=== PATIENT | male | born 1965 | race Caucasian/White ===

== ENCOUNTER 2019-10-11 03:49 | Inpatient (IN) | payer BC ==
[~2019-10-11] VITALS: Ht 170.2 cm; Wt 60.2 kg
[~2019-10-11 03:49] MED LIST: ACET325 PO; DIPH50 PO
[2019-10-11 04:08] LABS: PCO2 Arterial 47.8 mmHg (35-45); PO2 Arterial 69.5 mmHg (80-100); pH Blood Arterial 7.37 (7.35-7.45)
[2019-10-11 04:08] LABS: BASOPHILS ABSOLUTE AUTO 0.09 K/mm3 (0.00-0.23); BASOPHILS PERCENT AUTO 1 % (0-2); EOSINOPHILS ABSOLUTE AUTO 0.46 K/mm3 (0.00-0.68); EOSINOPHILS PERCENT AUTO 7 % (0-6); Hematocrit 43.2 % (37.0-53.0); Hemoglobin 15.1 g/dL (13.5-17.5); IMMATURE GRAN ABSOLUTE AUTO 0.01 K/mm3 (0.00-0.10); IMMATURE GRAN PERCENT AUTO 0 % (0-1); LYMPHOCYTES ABSOLUTE AUTO 2.78 K/mm3 (0.84-5.20); LYMPHOCYTES PERCENT AUTO 43 % (21-46); MONOCYTES ABSOLUTE AUTO 0.86 K/mm3 (0.16-1.47); MONOCYTES PERCENT AUTO 13 % (4-13); Mean Corpuscular HGB 31.8 pg (26.0-34.0); Mean Corpuscular Volume 91 fL (80-100); Mean Platelet Volume 8.7 fL (9.1-12.4); NEUTROPHILS ABSOLUTE AUTO 2.26 K/mm3 (1.96-9.15); NEUTROPHILS PERCENT AUTO 35 % (41-73); Platelet Count 261 K/mm3 (150-400); RDW Coefficient Variation 11.5 % (11.7-14.2); RDW Standard Deviation 38.7 fL (35.1-46.3); Red Blood Cell Count 4.75 M/mm3 (4.30-5.90); White Blood Cell Count 6.46 K/mm3 (4.00-11.30)
[2019-10-11 04:32] LABS: Alanine Aminotransfer (ALT/SGP 31 U/L (12-78); Albumin, Blood 3.6 g/dL (3.4-5.0); Albumin/Globulin Ratio 1.1 (0.8-1.8); Alk Phos 73 U/L (50-136); Anion Gap 4 mmol/L (6-16); Aspartate Aminotrans (AST/SGOT 32 U/L (12-37); Bilirubin, Total 0.8 mg/dL (0.1-1.0); Blood Urea Nitrogen 4 mg/dL (8-24); Bun/Creatinine Ratio 6.1 (12.0-20.0); CO2, Blood 31 mmol/L (21-32); Calcium, Blood 8.3 mg/dL (8.5-10.1); Chloride, Blood 95 mmol/L (98-108); Creatinine, Blood 0.66 mg/dL (0.60-1.20); Globulin, Blood 3.4 g/dL (2.2-4.0); Glomerular Filtration Rate >60 (60-); Glucose, Blood 99 mg/dL (70-99); Potassium, Blood 4.2 mmol/L (3.5-5.5); Sodium, Blood 130 mmol/L (136-145); Troponin I <0.015 ng/mL (0.000-0.040)
[2019-10-11] MEDS ORDERED: PRINIVIL10 MG PO (05:55)
[2019-10-11] MEDS ORDERED: BUDE6HFA INH (05:55)
[2019-10-11] MEDS ORDERED: COMBIVENT RESPIM4 GM INH (05:55)
[2019-10-11] MEDS ORDERED: [UNRECOGNIZED DRUG - REMARK] NEB (07:09)
--- NOTE | 2019-10-11 07:15 | NUR ---
new arrival from ER, started admission but handed it off to day staff at shift change, pt in bed, low position, scuds attached, refused biap, stating 90's on 2L via nc, ns infusing with no s/sx of infection or infiltration, a+o, answering questions in full sentences, bsr shared with pt and day staff
--- NOTE | 2019-10-11 10:52 | NUR ---
PERMISSION FOR CARE PATIENT GAVE STUDENT PERMISSION TO PROVIDE CARE ON 10/11/19.
--- NOTE | 2019-10-11 13:14 | NUR ---
The pt has been alert, oriented, and states that his breathing is ok, about the same as when he arrived from the around 0730 this morning. He has been wearing 2 l/min of oxygen, maintaining spo2 greater than 93%. Dyspneic with activity of standing to use the urinal, because this triggers productive coughing. Sputum specimen was sent. He denies becoming short of breath while eating his meals today. states that his family has been urging him for years to quit smoking. also states that he drinks "at least a six pack of beer" every evening, but does not have withdrawl symptoms when he doesn't drink if he has to work. states that he is scheduled for a CT scan next week as Dr. Compa Coats was very concerned that the pt might have cancer. He has had a decreased appetite and 30 pound weight loss in the past 4 months. is very anxious to talk with the hospitalist today to learn the results of the chest xray.
--- NOTE | 2019-10-11 14:40 | NUR ---
Advance Directive Education Conducted. Upon receiving an admit referral for Advance Directive education, I visited patient and his Veda, who was bedside. The interest was minimal but they stated that I could leave the Advance Directive forms with them. I went over the sections, talked about the health care dermatology sales representative, and the options to choose from. I will continue to remaina vailble to patient and family.
--- NOTE | 2019-10-11 16:41 | NUR ---
Dr. Daley was here to see the pt about an hour ago. STates no pneumonia in pt's lungs. Pt has stable vital signs, and states that his breathing is much easier , less tight, than it was this morning. He is sitting up in bed, talking with the physician and with his .
--- NOTE | 2019-10-11 19:04 | NUR ---
summary Overall, pt states much improvement in breathing since this morning. Still wearing oxygen 2 l/min, and spo2 drops to at least 90% with activity such as toileting. He was able to ambulate once into the bathroom this afternoon. Eating, but has a decreased appetite. Voiding without apparent difficulty. He has not expressed any needs, discomfort, or pain this evening. Has been sleeping since after dinner time. Call light in reach; report handoff given to Fidencio Marks RN.
--- NOTE | 2019-10-12 07:30 | NUR ---
ASSUMED CARE: RESTING QUIETLY ON 2L NC. NO ACUTE NEEDS OR CONCERNS AT THIS TIME
--- NOTE | 2019-10-12 07:46 | NUR ---
SHIFT SUMMARY PATIENT PLEASENT AND COOPERATIVE. PATIENT MEDICATED WITH RELIEF FOR AN UPSET STOMACHE PER EMAR. PATIENT APPEARED TO SLEEP WELL THROUGHOUT MOST OF THE NIGHT USING 2L O2 VIA N/C. PATIENT USED THE URINAL AT THE BEDSIDE THROUGHOUT THE NIGHT. PATIENT GOT UP TO THE BATHROOM ONCE AT APPROX 0445 BUT BECAME VERY SOB AND ANXIOUS. PATIENT REQUIRED THE VISION BIPAP FOR RESCUE BUT RECOVERED WITHIN APPROX 10 MINUTES AND THEN WENT BACK TO THE N/C. NO FURTHER EPISODES OCCURRED LAST NIGHT. REPORT GIVEN TO ONCOMING RN.
--- NOTE | 2019-10-12 15:10 | NUR ---
RT DI HOME O2 EVAL AND PT DID NOT QUALIFY. RT REQUESTED SLEEP OXYMETRY STUDY. CALL TO DR GOODWIN. SEE NEW ORDERS
--- NOTE | 2019-10-12 18:35 | NUR ---
SHIFT SUMMARY: PT ON ROOM AIR AT THIS TIME. RT ASSISTING WITH CARE, HOME O2 EVAL COMPLETED AND PT DOES NOT QUALIFY FOR HOME O2. SLEEP O2 EVAL TO BE DONE THIS PM. PLAN IS FOR DC TOMORROW IF NO ISSUES WITH DESATTING OVERNIGHT
--- NOTE | 2019-10-13 06:05 | NUR ---
SHIFT SUMMARY: PATIENT COMPLETED SLEEP STUDY THIS PM, NO ISSUES NOTED. VSS, CALL LIGHT WITHIN REACH, BED LOW AND LOCKED AND PATINET COMPLIANT WITH CARE.
--- NOTE | 2019-10-13 07:30 | NUR ---
ASSUMED CARE: PT SITTING UPRIGHT IN BED ON ROOM AIR. RT AT BEDSIDE. NO NEEDS AT THIS TIME.
[2019-10-13] MEDS ORDERED: PRED20 PO (10:26)
[2019-10-13] MEDS ORDERED: GUAI600T33 PO (10:40)
--- NOTE | 2019-10-13 11:46 | NUR ---
DISCHARGE; PT'S IV REMOVED WNL. DISCUSSD DC INSTRUCTIONS WITH PT, INCLUDING PREDNISONE TAPER AND RESTARTING PREDNISONE IF WHEEZING RESUMES. INSTRUCTED PT TO CONTACT DISULFURIZER TENDER ON FURTHER INSTRUCTIONS IF PREDNISONE HAS TO BE RESTARTED. DENIED FURTHER QUESTIONS OR CONCERNS. ESCORTED OUT WHEEL CHAIR BY HOSPITAL STAFF
--- NOTE | 2019-10-13 11:47 | NUR ---
ASSUMED CARE APPROXIMATELY 0700; PT A&O X 4; PT SITTING AT EDGE OF BED SMILING AND MAKING JOKES; DENIED PAIN, CHEST PAIN; PT ANXIOUS TO BE DISCHARGED; STATES HE IS FEELING WELL; DENIED NEEDS AT THIS TIME; CALL LIGHT IN REACH; BED IN LOWEST POSITION; WILL CONTINUE TO ASSESS AND MONITOR
== END 2019-10-13 11:38 | disposition home or self-care (01) | DRG 189 ==
LOC: ER 03:49 → PCU 05:54
PROVIDERS: Emergency Medicine; ADMIT Hospitalist
PROC: 5A09357 Assistance with Respiratory Ventilation, Less than 24 Consecutive Hours, Continuous Positive Airway Pressure (ICD-10-PCS; principal; 2019-10-11)
DX: J96.01 Acute respiratory failure with hypoxia (principal); E22.2 Syndrome of inappropriate secretion of antidiuretic hormone; E87.3 Alkalosis; E87.2 Acidosis; J45.901 Unspecified asthma with (acute) exacerbation; J43.9 Emphysema, unspecified; I10 Essential (primary) hypertension; F17.200 Nicotine dependence, unspecified, uncomplicated
CPT/HCPCS: 36415; 36600; 71045; 80053; 82803; 84484; 85025; 87070; 87205; 93005; 93010; 94640; 94660; 94761; 94762; 99285-25; J1650; J2930; J7030; J7040; J7512

== ENCOUNTER 2020-08-11 21:28 | Emergency (ER) | payer OTHER, BC ==
[~2020-08-11] VITALS: Ht 167.6 cm; Wt 63.5 kg
[~2020-08-11 21:28] MED LIST changes: +BUDE6HFA INH; +COMBIVENT RESPIM4 GM INH; +GUAI600T33 PO; +PRED20 PO; +PRINIVIL10 MG PO; +[UNRECOGNIZED DRUG - REMARK] NEB
[2020-08-11] MEDS ORDERED: TRELEGY ELLIPT1 EACH IH (21:37)
[2020-08-11] MEDS ORDERED: IPRAT-ALBUT 0.5-3 ML IH (21:37)
[2020-08-11] MEDS ORDERED: QVAR REDIHALE10.6 G2 IH (21:37)
[2020-08-11] MEDS ORDERED: Keflex500 MG PO (22:12)
== END 2020-08-11 22:16 | disposition home or self-care (01) ==
LOC: ER 21:28
DX: L03.113 Cellulitis of right upper limb (principal); S51.811A Laceration without foreign body of right forearm, initial encounter; I10 Essential (primary) hypertension; J43.9 Emphysema, unspecified; F17.210 Nicotine dependence, cigarettes, uncomplicated; Z79.899 Other long term (current) drug therapy; W45.8XXA Other foreign body or object entering through skin, initial encounter; Y92.89 Other specified places as the place of occurrence of the external cause; Y99.0 Civilian activity done for income or pay
CPT/HCPCS: 99283; A9270-GY

== ENCOUNTER 2022-04-07 08:37 | Emergency (ER) | payer BC ==
[~2022-04-07] VITALS: Ht 167.6 cm; Wt 61.2 kg
[~2022-04-07 08:37] MED LIST changes: +IPRAT-ALBUT 0.5-3 ML IH; +Keflex500 MG PO; +QVAR REDIHALE10.6 G2 IH; +TRELEGY ELLIPT1 EACH IH
[2022-04-07 09:02] LABS: BASOPHILS ABSOLUTE AUTO 0.04 K/mm3 (0.00-0.23); BASOPHILS PERCENT AUTO 0 % (0-2); EOSINOPHILS ABSOLUTE AUTO 0.05 K/mm3 (0.00-0.68); EOSINOPHILS PERCENT AUTO 1 % (0-6); Hematocrit 38.4 % (37.0-53.0); Hemoglobin 13.7 g/dL (13.5-17.5); IMMATURE GRAN ABSOLUTE AUTO 0.04 K/mm3 (0.00-0.10); IMMATURE GRAN PERCENT AUTO 0 % (0-1); LYMPHOCYTES ABSOLUTE AUTO 2.94 K/mm3 (0.84-5.20); LYMPHOCYTES PERCENT AUTO 29 % (21-46); MONOCYTES ABSOLUTE AUTO 1.29 K/mm3 (0.16-1.47); MONOCYTES PERCENT AUTO 13 % (4-13); Mean Corpuscular HGB 32.2 pg (26.0-34.0); Mean Corpuscular HGB Conc 35.7 g/dL (31.5-36.5); Mean Corpuscular Volume 90 fL (80-100); Mean Platelet Volume 8.2 fL (9.1-12.4); NEUTROPHILS ABSOLUTE AUTO 5.88 K/mm3 (1.96-9.15); NEUTROPHILS PERCENT AUTO 57 % (41-73); Platelet Count 294 K/mm3 (150-400); RDW Coefficient Variation 11.1 % (11.7-14.2); RDW Standard Deviation 36.5 fL (35.1-46.3); Red Blood Cell Count 4.26 M/mm3 (4.30-5.90); White Blood Cell Count 10.24 K/mm3 (4.00-11.30)
[2022-04-07 09:14] LABS: Albumin, Blood 3.6 g/dL (3.4-5.0); Albumin/Globulin Ratio 1.2 (0.8-1.8); Bilirubin, Total 0.6 mg/dL (0.1-1.0); Bun/Creatinine Ratio 13.2 (12.0-20.0); Calcium, Blood 8.3 mg/dL (8.5-10.1); Creatinine, Blood 0.46 mg/dL (0.60-1.20); Globulin, Blood 3.1 g/dL (2.2-4.0); Total Protein, Blood 6.7 g/dL (6.4-8.2)
[2022-04-07] MEDS ORDERED: COMBIVENT RESPIM4 G1 INH (10:10)
[2022-04-07] MEDS ORDERED: PRED20 PO (10:10)
[2022-04-07 10:33] LABS: Base Excess Venous 5.1 mmol/L; Bicarbonate Venous 28.1 mmol/L (24.0-30.0); PCO2 Venous 46.9 mmHg (38-42); PO2 Venous 64.7 mmHg (38-42); pH Blood Venous 7.41 (7.34-7.37)
== END 2022-04-07 12:11 | disposition home or self-care (01) ==
LOC: ER 08:37
PROVIDERS: Physician Assistant
DX: J44.1 Chronic obstructive pulmonary disease with (acute) exacerbation (principal); I10 Essential (primary) hypertension; F17.210 Nicotine dependence, cigarettes, uncomplicated; Z79.899 Other long term (current) drug therapy
CPT/HCPCS: 71045; 80053; 82803; 83880; 84484; 85025; 93005; 93010; 94640; 94664; 94762; J2930

== ENCOUNTER 2022-10-26 07:22 | Emergency (ER) | payer BC ==
[~2022-10-26] VITALS: Ht 167.6 cm; Wt 59.0 kg
[~2022-10-26 07:22] MED LIST changes: +COMBIVENT RESPIM4 G1 INH
[2022-10-26 08:42] LABS: BASOPHILS ABSOLUTE AUTO 0.05 K/mm3 (0.00-0.23); BASOPHILS PERCENT AUTO 1 % (0-2); EOSINOPHILS ABSOLUTE AUTO 0.07 K/mm3 (0.00-0.68); EOSINOPHILS PERCENT AUTO 1 % (0-6); Hematocrit 39.3 % (37.0-53.0); Hemoglobin 13.9 g/dL (13.5-17.5); IMMATURE GRAN ABSOLUTE AUTO 0.02 K/mm3 (0.00-0.10); IMMATURE GRAN PERCENT AUTO 0 % (0-1); LYMPHOCYTES PERCENT AUTO 21 % (21-46); MONOCYTES ABSOLUTE AUTO 0.75 K/mm3 (0.16-1.47); MONOCYTES PERCENT AUTO 13 % (4-13); Mean Corpuscular HGB 32.1 pg (26.0-34.0); Mean Corpuscular HGB Conc 35.4 g/dL (31.5-36.5); Mean Corpuscular Volume 91 fL (80-100); Mean Platelet Volume 8.3 fL (9.1-12.4); NEUTROPHILS ABSOLUTE AUTO 3.64 K/mm3 (1.96-9.15); NEUTROPHILS PERCENT AUTO 64 % (41-73); Platelet Count 245 K/mm3 (150-400); RDW Coefficient Variation 11.4 % (11.7-14.2); RDW Standard Deviation 38.3 fL (35.1-46.3); Red Blood Cell Count 4.33 M/mm3 (4.30-5.90); White Blood Cell Count 5.73 K/mm3 (4.00-11.30)
[2022-10-26 09:01] LABS: Albumin, Blood 3.5 g/dL (3.4-5.0); Albumin/Globulin Ratio 1.1 (0.8-1.8); Bilirubin, Total 0.6 mg/dL (0.1-1.0); Bun/Creatinine Ratio 13.1 (12.0-20.0); Calcium, Blood 9.1 mg/dL (8.5-10.1); Creatinine, Blood 0.46 mg/dL (0.60-1.20); Globulin, Blood 3.3 g/dL (2.2-4.0); Potassium, Blood 4.5 mmol/L (3.5-5.5); Total Protein, Blood 6.8 g/dL (6.4-8.2)
[2022-10-26 09:35] LABS: Influenza A, PCR NEGATIVE (NEGATIVE); Influenza B, PCR NEGATIVE (NEGATIVE); Resp Syncytial Virus, PCR NEGATIVE (NEGATIVE); SARS-Cov-2 (COVID-19) PCR, MMC NEGATIVE (NEGATIVE)
[2022-10-26] MEDS ORDERED: AZIT250 PO (09:51)
[2022-10-26] MEDS ORDERED: PRED20 PO (09:51)
== END 2022-10-26 10:01 | disposition home or self-care (01) ==
LOC: ER 07:22
PROVIDERS: Emergency Medicine
DX: J44.1 Chronic obstructive pulmonary disease with (acute) exacerbation (principal); I10 Essential (primary) hypertension; Z87.891 Personal history of nicotine dependence; Z20.822 Contact with and (suspected) exposure to COVID-19
CPT/HCPCS: 0241U; 36415; 71046; 80053; 83880; 84484; 85025; 93005; 93010; 94644; 94664; J2930; J3475

== ENCOUNTER 2023-05-27 08:44 | Inpatient (IN) | payer BC ==
[~2023-05-27] VITALS: Ht 165.1 cm; Wt 53.4 kg
[~2023-05-27 08:44] MED LIST changes: +AZIT250 PO
[2023-05-27 09:42] LABS: BASOPHILS ABSOLUTE AUTO 0.06 K/mm3 (0.00-0.23); BASOPHILS PERCENT AUTO 1 % (0-2); EOSINOPHILS ABSOLUTE AUTO 0.07 K/mm3 (0.00-0.68); EOSINOPHILS PERCENT AUTO 1 % (0-6); Hematocrit 41.2 % (37.0-53.0); Hemoglobin 14.6 g/dL (13.5-17.5); IMMATURE GRAN ABSOLUTE AUTO 0.01 K/mm3 (0.00-0.10); IMMATURE GRAN PERCENT AUTO 0 % (0-1); LYMPHOCYTES ABSOLUTE AUTO 1.26 K/mm3 (0.84-5.20); LYMPHOCYTES PERCENT AUTO 22 % (21-46); MONOCYTES ABSOLUTE AUTO 0.65 K/mm3 (0.16-1.47); MONOCYTES PERCENT AUTO 11 % (4-13); Mean Corpuscular HGB 32.2 pg (26.0-34.0); Mean Corpuscular HGB Conc 35.4 g/dL (31.5-36.5); Mean Corpuscular Volume 91 fL (80-100); Mean Platelet Volume 8.2 fL (9.1-12.4); NEUTROPHILS ABSOLUTE AUTO 3.68 K/mm3 (1.96-9.15); NEUTROPHILS PERCENT AUTO 64 % (41-73); Platelet Count 266 K/mm3 (150-400); RDW Coefficient Variation 11.4 % (11.7-14.2); RDW Standard Deviation 38.1 fL (35.1-46.3); Red Blood Cell Count 4.54 M/mm3 (4.30-5.90); White Blood Cell Count 5.73 K/mm3 (4.00-11.30)
[2023-05-27 10:21] LABS: Albumin, Blood 3.9 g/dL (3.4-5.0); Albumin/Globulin Ratio 1.1 (0.8-1.8); Bilirubin, Total 0.8 mg/dL (0.1-1.0); Bun/Creatinine Ratio 8.1 (12.0-20.0); Calcium, Blood 9.3 mg/dL (8.5-10.1); Creatinine, Blood 0.62 mg/dL (0.60-1.20); Globulin, Blood 3.5 g/dL (2.2-4.0); Potassium, Blood 4.2 mmol/L (3.5-5.5); Total Protein, Blood 7.4 g/dL (6.4-8.2)
[2023-05-27] MEDS ORDERED: XOLAIR150 MG (18:03)
[2023-05-27 18:08] VITALS: BP 161/102
--- NOTE | 2023-05-27 18:15 | NUR ---
PT CHART REVIEWED FOR ADMISSION
[2023-05-27] MEDS ORDERED: BANOPHEN25 MG PO (18:39)
--- NOTE | 2023-05-27 18:44 | NUR ---
PT ARRIVED TO THE MEDICAL FLOOR FROM THE ER VIA GURNEY. THE PT WAS ABLE TO AMBULATE TO THE BED WITHOUT ASSISTANCE. PT IS SOB WITH LITTLE ACTIVIY. PT IS ON RA AT THIS TIME. RT CALLED FOR BREATHING TX PER PTS REQUEST. THE PT WAS ORIENTED TO THE ROOM LAYOUT AND CALL SYSTEM. CALL LIGHT IN REACH. WILL CONTINUE TO MONITOR AND ASSESS FOR CHANGES
[2023-05-27 19:53] VITALS: BP 152/92
[2023-05-28 02:36] VITALS: BP 138/95
--- NOTE | 2023-05-28 04:10 | NUR ---
SPOKE WITH PT ABOUT ANXIETY AND HE STS THAT HIS PRIMARY PHYSICIAN HAD DISCUSSED PUTTING HIM ON SOME MEDICATION. SPOKE WITH DR. THURSTON AND ORDERED PT 1MG ATIVAN PO Q 4 PRN FOR ANXIETY.
--- NOTE | 2023-05-28 04:26 | NUR ---
SHIFT SUMMARY PT COOPERATIVE WITH CARE. PT SLEEPING OFF AND ON THROUGHOUT THE NIGHT. PT WOKE THIS AM FEELING SOB. VITAL SIGNS WERE WITHIN NORMAL LIMITS AND OXYGEN SATURATION WAS 98-99% ON 2L O2 VIA NC. WHEN ASKED ABOUT ANXIETY, PT STS THAT HIS PRIMARY PHYSICIAN HAD THOUGHT ABOUT PUTTING HIM ON SOME TYPE OF DAILY ANXIETY MEDICATION, BUT HAD NOT YET DONE IT. WILL HAVE ATIVAN 1MG PO AVAILABLE PER DR THURSTON.
[2023-05-28 04:48] LABS: BASOPHILS PERCENT AUTO 0 % (0-2); EOSINOPHILS PERCENT AUTO 0 % (0-6); IMMATURE GRAN ABSOLUTE AUTO 0.02 K/mm3 (0.00-0.10); IMMATURE GRAN PERCENT AUTO 0 % (0-1); LYMPHOCYTES ABSOLUTE AUTO 0.65 K/mm3 (0.84-5.20); LYMPHOCYTES PERCENT AUTO 13 % (21-46); MONOCYTES ABSOLUTE AUTO 0.31 K/mm3 (0.16-1.47); MONOCYTES PERCENT AUTO 6 % (4-13); Mean Corpuscular HGB 32.3 pg (26.0-34.0); Mean Corpuscular HGB Conc 36.1 g/dL (31.5-36.5); Mean Corpuscular Volume 89 fL (80-100); Mean Platelet Volume 8.5 fL (9.1-12.4); NEUTROPHILS ABSOLUTE AUTO 3.92 K/mm3 (1.96-9.15); NEUTROPHILS PERCENT AUTO 80 % (41-73); Platelet Count 235 K/mm3 (150-400); RDW Coefficient Variation 11.1 % (11.7-14.2); RDW Standard Deviation 36.2 fL (35.1-46.3); Red Blood Cell Count 4.03 M/mm3 (4.30-5.90)
[2023-05-28 06:59] LABS: Magnesium, Blood 1.8 mg/dL (1.6-2.4); Thyroid Stimulating Hormone 0.296 uIU/mL (0.360-4.800)
[2023-05-28 07:43] LABS: Alanine Aminotransfer (ALT/SGP 26 U/L (12-78); Albumin, Blood 3.3 g/dL (3.4-5.0); Albumin/Globulin Ratio 1.1 (0.8-1.8); Alk Phos 58 U/L (50-136); Anion Gap 6 mmol/L (6-16); Aspartate Aminotrans (AST/SGOT 19 U/L (12-37); Blood Urea Nitrogen 6 mg/dL (8-24); Bun/Creatinine Ratio 12.4 (12.0-20.0); C-REACTIVE PROTEIN, EXT RANGE <0.290 mg/dL (0.000-0.300); CO2, Blood 27 mmol/L (21-32); Calcium, Blood 8.5 mg/dL (8.5-10.1); Chloride, Blood 93 mmol/L (98-108); Creatinine, Blood 0.49 mg/dL (0.60-1.20); Globulin, Blood 2.9 g/dL (2.2-4.0); Glomerular Filtration Rate 119 (60-); Glucose, Blood 153 mg/dL (70-99); Potassium, Blood 3.8 mmol/L (3.5-5.5); Sodium, Blood 126 mmol/L (136-145); Total Protein, Blood 6.2 g/dL (6.4-8.2)
[2023-05-28 07:47] VITALS: BP 163/97
--- NOTE | 2023-05-28 11:00 | NUR ---
FIRE NOTE PT EDUCATED ON RISK RE: IGNITION SOURCES AND RISK OF INJURY. PT DENIES SMOKING. CONTINUE POC.
[2023-05-28 15:21] VITALS: BP 136/90
--- NOTE | 2023-05-28 17:30 | NUR ---
NAUSEA STARTED ZOFRAN. 60 ML IN PT C/O OF NAUSEA. STOPPED INFUSION. CALLED DR MARY CLEMENS ECEIVED. CONTINUE POC.
--- NOTE | 2023-05-28 18:23 | NUR ---
SHIFT NOTE PT RESTING QUIETLY. VSS. SEE PREVIOUS NOTE. CT ANGIOGRAM CHEST DONE. PT TOLERATED WELL. MILD SOB WITH TALKING AND ACTIVITY. RA. NO COUGH. HERE FOR THE AFTERNOON. GOOD HUMOUR. CONTINUE POC.
[2023-05-28 20:36] VITALS: BP 132/93
[2023-05-29 03:14] VITALS: BP 131/86
[2023-05-29 05:01] LABS: Hematocrit 35.9 % (37.0-53.0); Hemoglobin 13.2 g/dL (13.5-17.5); Mean Corpuscular HGB 32.6 pg (26.0-34.0); Mean Corpuscular HGB Conc 36.8 g/dL (31.5-36.5); Mean Corpuscular Volume 89 fL (80-100); Mean Platelet Volume 8.7 fL (9.1-12.4); Platelet Count 238 K/mm3 (150-400); RDW Coefficient Variation 11.2 % (11.7-14.2); RDW Standard Deviation 36.2 fL (35.1-46.3); Red Blood Cell Count 4.05 M/mm3 (4.30-5.90); White Blood Cell Count 8.43 K/mm3 (4.00-11.30)
[2023-05-29 05:22] LABS: Albumin, Blood 3.3 g/dL (3.4-5.0); Albumin/Globulin Ratio 1.2 (0.8-1.8); Calcium, Blood 8.7 mg/dL (8.5-10.1); Creatinine, Blood 0.46 mg/dL (0.60-1.20); Globulin, Blood 2.8 g/dL (2.2-4.0); Magnesium, Blood 1.9 mg/dL (1.6-2.4); Potassium, Blood 3.8 mmol/L (3.5-5.5); Total Protein, Blood 6.1 g/dL (6.4-8.2)
--- NOTE | 2023-05-29 06:20 | NUR ---
SHIFT SUMMARY NO ACUTE CHANGES TO REPORT OVERNIGHT. PT HAS RESTED WELL, STILL SOB WITH EXERTION BUT HE HAS DONE WELL ON RA AND IS MAINTAINING SATS WNL. BREATHING TREATMENTS PRN T/O THE SHIFT. IV SOLUMEDROL CONTINUED. VITALS STABLE. PT DENIES PAIN. PLAN OF CARE REMAINS UNCHANGED. FIRE SAFETY: IGNITION RISKS ASSESSED THIS SHIFT DURING PT ROUNDS. PT DENIES SMOKING OR HAVING IGNITION SOURCES.
[2023-05-29 07:46] VITALS: BP 122/77
--- NOTE | 2023-05-29 16:45 | NUR ---
SHIFT NOTE PT RELATED THAT PT DRINKS 6-8 BEERS EVERY NIGHT. HIS LAST DRTINK WAAS THUIRSDASY NIGHT. WAS CONCERNED ABOUT PT SHAKING AND EDGINESS. WENT AND TALKED WITH HIM . ASSESSED CIWA AT 9. MEDICATED WITH ATIVAN 0.5MG. CALLED DR HERNANDEZ. ORDER FOR BEER WITH MEALS AND CIWA RECEIVED. CONTINUE POC.
[2023-05-29 19:51] VITALS: BP 114/80
[2023-05-30 04:20] VITALS: BP 125/83
[2023-05-30 04:51] LABS: Hematocrit 34.9 % (37.0-53.0); Hemoglobin 12.7 g/dL (13.5-17.5); Mean Corpuscular HGB 32.6 pg (26.0-34.0); Mean Corpuscular HGB Conc 36.4 g/dL (31.5-36.5); Mean Corpuscular Volume 90 fL (80-100); Mean Platelet Volume 8.5 fL (9.1-12.4); Platelet Count 233 K/mm3 (150-400); RDW Coefficient Variation 11.3 % (11.7-14.2); RDW Standard Deviation 36.7 fL (35.1-46.3); White Blood Cell Count 8.77 K/mm3 (4.00-11.30)
[2023-05-30 05:18] LABS: Bun/Creatinine Ratio 14.7 (12.0-20.0); Calcium, Blood 8.3 mg/dL (8.5-10.1); Creatinine, Blood 0.54 mg/dL (0.60-1.20); Potassium, Blood 3.6 mmol/L (3.5-5.5)
--- NOTE | 2023-05-30 05:22 | NUR ---
SHIFT SUMMARY PT A&OX4, AND COOPERATIVE WITH CARE. NO ACUTE CHANGES. VSS. PT RESTED MAJORITY OF SHIFT. NO APPARENT AGITATION OR SHAKES. PT DOES HAVE A BEER IN THE ROOM BUT HAS TO YET CONSUME ANY OF IT. INDEPENDENT IN ROOM/BATHROOM. LUNG SOUNDS REMAIN WHEEZY T/O. SATS >90%. CALLS APPROPRIATELY, CALL LIGHT WITHIN REACH.
[2023-05-30 08:01] VITALS: BP 137/92
[2023-05-30] MEDS ORDERED: FAMO20 PO (11:51)
[2023-05-30] MEDS ORDERED: GUAI600T33 PO (11:52)
[2023-05-30] MEDS ORDERED: DELTASONE20 MG PO (11:54)
[2023-05-30] MEDS ORDERED: CEFD300 PO (11:55)
--- NOTE | 2023-05-30 12:35 | NUR ---
DISCHARGE STATUS DISCHARGE ORDER WAS CANCELLED WITH POSSIBLE DC TOMORROW. DC PAPERWORK COMPLETED AND IN PAPER CHART WITH [facility] IF NO CHANGES ARE MADE TO DISCHARGE PLAN/MEDICATIONS IN THE MORNING. MED LIST HAS NOT BEEN FAXED TO PRIMARY PHARMACY YET.
[2023-05-30 15:40] VITALS: BP 130/82
--- NOTE | 2023-05-30 16:33 | NUR ---
SHIFT SUMMARY S/P COPD/ASTHMA EXACERBATION, A/OX4, VSS, TOLERATING PO, INDEPENDENT IN THE ROOM, PLAN FOR DISCHARGE BUT WAS DECIDED TO KEEP ONE MORE DAY. DISCHARGE IS READY TO GO IN THE MORNING IF NO CHANGES ARE MADE TO IT, MED LIST IS READY TO BE FAXED TO THE PHARMACY IF ALSO LEFT UNCHANGED. NO ACUTE EVENTS THIS SHIFT, CALL LIGHT IN REACH.
--- NOTE | 2023-05-30 19:22 | NUR ---
NURSE NOTE AWAKE. WAS AMBULATING ABOUT HALLWAY AND RETURNED TO ROOM. ALERT AND ORIENTED X 4. DENIES LOSS OF FEELING. DISCUSSES POSSIBLE DC IN THE AM. ON ROOM AIR AT THIS TIME. CALL LIGHT IN REACH.
[2023-05-30 20:14] VITALS: BP 141/97
--- NOTE | 2023-05-31 04:21 | NUR ---
METER AND SERVICE LINE INSPECTOR SUMMARY BP ELEVATED, OTHERWISE VSS. WAS UP AMBULATING ABOUT HALLWAYS AT SHIFT COMMENCE. DENIED DISTRESS WHEN ASKED. LUNG SOUNDS COARSE WHEEZES INSP AND EXP NOTED WITH AUSCULTATION. ALERT AND ORIENTED. DISCUSSED DISCHARGE IN THE AM, ENCOURAGED TO TALK WITH THE MD RE QUESTIONS. HAS BEEN RESTING QUIETLY WITH EFW INTERUPTTIONS. CALL LIGHT IN REACH. WILL CONTINUE TO MONITOR. RESP TREATMENTS PER RT
[2023-05-31 04:37] LABS: Hematocrit 35.5 % (37.0-53.0); Hemoglobin 12.9 g/dL (13.5-17.5); Mean Corpuscular HGB 32.3 pg (26.0-34.0); Mean Corpuscular HGB Conc 36.3 g/dL (31.5-36.5); Mean Corpuscular Volume 89 fL (80-100); Mean Platelet Volume 8.4 fL (9.1-12.4); Platelet Count 242 K/mm3 (150-400); RDW Coefficient Variation 11.1 % (11.7-14.2); RDW Standard Deviation 36.2 fL (35.1-46.3); Red Blood Cell Count 3.99 M/mm3 (4.30-5.90); White Blood Cell Count 7.91 K/mm3 (4.00-11.30)
[2023-05-31 05:14] LABS: Albumin, Blood 2.9 g/dL (3.4-5.0); Albumin/Globulin Ratio 1.1 (0.8-1.8); Bilirubin, Total 0.6 mg/dL (0.1-1.0); Bun/Creatinine Ratio 15.9 (12.0-20.0); Calcium, Blood 8.1 mg/dL (8.5-10.1); Creatinine, Blood 0.5 mg/dL (0.60-1.20); Globulin, Blood 2.7 g/dL (2.2-4.0); Potassium, Blood 3.8 mmol/L (3.5-5.5); Total Protein, Blood 5.6 g/dL (6.4-8.2)
[2023-05-31 05:33] VITALS: BP 129/76
--- NOTE | 2023-05-31 07:18 | NUR ---
ASSUMED CARE: PT RESTING QUIETLY AT THIS TIME. ON RA. NO ACUTE NEEDS OR CONCERNS.
[2023-05-31 07:44] VITALS: BP 138/84
--- NOTE | 2023-05-31 12:37 | NUR ---
PT GIVEN INSTRUCTIONS REGARDING FOLLOW UP APPOINTMENTS AND MEDICATIONS. DENIED FURTHER NEEDS OR CONCERNS. IV ALREADY OUT UPON ASSESSMENT. PT DRESSED HIMSELF AND AMBULOTORY UPON DISCHARGE. DENIED FURTHER NEEDS OR CONCERNS.
== END 2023-05-31 12:04 | disposition home or self-care (01) | DRG 191 ==
LOC: ER 08:44 → MEDS 17:12 → ENPENDDIS 05-31 11:25 → MEDS 05-31 12:04
PROVIDERS: Emergency Medicine; ADMIT Internal Medicine
DX: J43.9 Emphysema, unspecified (principal); E46 Unspecified protein-calorie malnutrition; S22.32XA Fracture of one rib, left side, initial encounter for closed fracture; S22.069A Unspecified fracture of T7-T8 vertebra, initial encounter for closed fracture; E87.1 Hypo-osmolality and hyponatremia; J45.901 Unspecified asthma with (acute) exacerbation; F10.239 Alcohol dependence with withdrawal, unspecified; X58.XXXA Exposure to other specified factors, initial encounter; I10 Essential (primary) hypertension; R07.89 Other chest pain; R79.1 Abnormal coagulation profile; Z87.891 Personal history of nicotine dependence; Z98.890 Other specified postprocedural states; Z88.8 Allergy status to other drugs, medicaments and biological substances; Z79.811 Long term (current) use of aromatase inhibitors; Z79.51 Long term (current) use of inhaled steroids; Z79.899 Other long term (current) drug therapy; Z68.21 Body mass index [BMI] 21.0-21.9, adult
CPT/HCPCS: 36415; 71046; 71260; 80048; 80053; 82652; 82947; 83735; 83880; 84145; 84443; 84484; 85025; 85027; 85379; 86140; 93005; 93010; 94640; 94644; 94664; 94760; 94761; 96374; 99285-25; A9270; J0456; J0696; J1650; J2930; J7050; J7512; Q9967

== ENCOUNTER 2023-07-18 11:50 | Day surgery (SDC) | payer BC ==
[~2023-07-18] VITALS: Ht 165.1 cm; Wt 53.6 kg
[~2023-07-18 11:50] MED LIST changes: +BANOPHEN25 MG PO; +CEFD300 PO; +DELTASONE20 MG PO; +FAMO20 PO; +XOLAIR150 MG
[2023-07-18] MEDS ORDERED: XOLAIR150 MG/1 M SC (12:35)
[2023-07-18] MEDS ORDERED: BENADRYL25 MG PO (12:41)
[2023-07-18] MEDS ORDERED: POTASSIUM99 M3 PO (12:45)
[2023-07-18] MEDS ORDERED: MASOPHEN325 M2 (12:47)
[2023-07-18 15:56] VITALS: BP 103/76
== END 2023-07-18 15:58 | disposition home or self-care (01) ==
LOC: ORSCSDS 11:50
PROVIDERS: Surgery
PROC: 0DBP8ZX Excision of Rectum, Via Natural or Artificial Opening Endoscopic, Diagnostic (ICD-10-PCS; principal; 2023-07-18 13:00)
PROC: 0DBN8ZX Excision of Sigmoid Colon, Via Natural or Artificial Opening Endoscopic, Diagnostic (ICD-10-PCS; principal; 2023-07-18 13:00)
PROC: 0DB78ZX Excision of Stomach, Pylorus, Via Natural or Artificial Opening Endoscopic, Diagnostic (ICD-10-PCS; principal; 2023-07-18 13:00)
DX: R63.4 Abnormal weight loss (principal); D50.9 Iron deficiency anemia, unspecified; D12.8 Benign neoplasm of rectum; K63.5 Polyp of colon; K29.70 Gastritis, unspecified, without bleeding; K44.9 Diaphragmatic hernia without obstruction or gangrene; J44.9 Chronic obstructive pulmonary disease, unspecified; F17.210 Nicotine dependence, cigarettes, uncomplicated; N40.0 Benign prostatic hyperplasia without lower urinary tract symptoms; I10 Essential (primary) hypertension; E78.5 Hyperlipidemia, unspecified; I47.1 Supraventricular tachycardia; Z79.899 Other long term (current) drug therapy
CPT/HCPCS: 88305; 88342; J0461; J2001; J2405; J2704; J7120; Q9968

== ENCOUNTER 2024-12-17 13:09 | Observation (INO) | payer BC ==
[~2024-12-17] VITALS: Ht 167.6 cm; Wt 59.0 kg
[~2024-12-17 13:09] MED LIST changes: +ALBU2.5V5 INH; +BENADRYL25 MG PO; +BUPROPION HCL200 M1 PO; +LIDO700A20 TOP; +LISI10 PO; +MASOPHEN325 M2 PO; +POTASSIUM99 M3 PO; -PRINIVIL10 MG PO; +Prednisone20 MG PO; -QVAR REDIHALE10.6 G2 IH; +QVAR REDIHALE10.6 G2 INH; -TRELEGY ELLIPT1 EACH IH; +TRELEGY ELLIPT1 EACH INH; +XOLAIR150 MG/1 M SC
[2024-12-17 13:45] LABS: BASOPHILS ABSOLUTE AUTO 0.08 K/mm3 (0.00-0.23); BASOPHILS PERCENT AUTO 1 % (0-2); EOSINOPHILS ABSOLUTE AUTO 0.18 K/mm3 (0.00-0.68); EOSINOPHILS PERCENT AUTO 3 % (0-6); Hematocrit 39.2 % (37.0-53.0); Hemoglobin 13.7 g/dL (13.5-17.5); IMMATURE GRAN ABSOLUTE AUTO 0.01 K/mm3 (0.00-0.10); IMMATURE GRAN PERCENT AUTO 0 % (0-1); LYMPHOCYTES ABSOLUTE AUTO 1.35 K/mm3 (0.84-5.20); LYMPHOCYTES PERCENT AUTO 23 % (21-46); MONOCYTES ABSOLUTE AUTO 0.82 K/mm3 (0.16-1.47); MONOCYTES PERCENT AUTO 14 % (4-13); Mean Corpuscular HGB 31.5 pg (26.0-34.0); Mean Corpuscular HGB Conc 34.9 g/dL (31.5-36.5); Mean Corpuscular Volume 90 fL (80-100); Mean Platelet Volume 8.3 fL (9.1-12.4); NEUTROPHILS ABSOLUTE AUTO 3.33 K/mm3 (1.96-9.15); NEUTROPHILS PERCENT AUTO 58 % (41-73); Platelet Count 291 K/mm3 (150-400); RDW Coefficient Variation 12.3 % (11.7-14.2); RDW Standard Deviation 40.6 fL (35.1-46.3); Red Blood Cell Count 4.35 M/mm3 (4.30-5.90); White Blood Cell Count 5.77 K/mm3 (4.00-11.30)
[2024-12-17 13:59] LABS: Base Excess Venous 2.8 mmol/L; Bicarbonate Venous 26.1 mmol/L (24.0-30.0); PCO2 Venous 49.3 mmHg (38-42); pH Blood Venous 7.37 (7.34-7.37)
[2024-12-17 14:01] LABS: Albumin, Blood 3.7 g/dL (3.4-5.0); Bilirubin, Total 1.1 mg/dL (0.1-1.0); Bun/Creatinine Ratio 8.1 (12.0-20.0); Calcium, Blood 8.8 mg/dL (8.5-10.1); Creatinine, Blood 0.61 mg/dL (0.60-1.20); Globulin, Blood 3.7 g/dL (2.2-4.0); Potassium, Blood 4.2 mmol/L (3.5-5.5); Total Protein, Blood 7.4 g/dL (6.4-8.2)
[2024-12-17] MEDS ORDERED: Ipratropium/Albuterol SulF 2.5-0.5MG/3 ML Amp INH PRN (14:55)
[2024-12-17] MEDS ORDERED: MethylPREDNISolone Sod Succ 125 MG Vial IV ONE (15:30)
[2024-12-17 16:36] LABS: CORONAVIRUS COVID-19 AG Negative (NEGATIVE); INFLUENZA A AG Negative (NEGATIVE); INFLUENZA B AG Negative (NEGATIVE)
[2024-12-17] MEDS ORDERED: Azithromycin 250 MG Tab PO ONE (17:25)
[2024-12-17] MEDS ORDERED: Ipratropium/Albuterol SulF 2.5-0.5MG/3 ML Amp INH ONE (18:10)
[2024-12-17] MEDS ORDERED: Ketorolac Tromethamine 30mg Vial IV ONE (18:10)
[2024-12-17 18:24] LABS: Base Excess Venous 2.5 mmol/L; Bicarbonate Venous 26.6 mmol/L (24.0-30.0); PCO2 Venous 38.5 mmHg (38-42); pH Blood Venous 7.45 (7.34-7.37)
[2024-12-17] MEDS ORDERED: Albuterol 2.5 MG/3 ML VIAL INH PRN (18:40)
[2024-12-17] MEDS ORDERED: FLU VACC TS2024-25(6MOS UP)/PF 45 MCG/0.5 ML SYRINGE IM SCH (18:40)
[2024-12-17] MEDS ORDERED: Ipratropium/Albuterol SulF 2.5-0.5MG/3 ML Amp INH SCH (18:40)
[2024-12-17] MEDS ORDERED: NS 1,000 ML IV SCH (18:45)
[2024-12-17] MEDS ORDERED: Ondansetron HCl 2 MG / ML 2ML Vial IV PRN (18:45)
[2024-12-17] MEDS ORDERED: IPRAT-ALBUT 0.5-3 ML INH (20:47)
[2024-12-17] MEDS ORDERED: GuaiFENesin 600 MG TabCR PO SCH (21:00)
[2024-12-17 21:37] VITALS: BP 146/105
[2024-12-18] MEDS ORDERED: MethylPREDNISolone Sod Succ 40 MG VIAL IV SCH
[2024-12-18 02:50] VITALS: BP 121/92
[2024-12-18 05:35] LABS: Bun/Creatinine Ratio 9.6 (12.0-20.0); Calcium, Blood 8.9 mg/dL (8.5-10.1); Creatinine, Blood 0.52 mg/dL (0.60-1.20); Potassium, Blood 4.4 mmol/L (3.5-5.5)
[2024-12-18 07:22] VITALS: BP 143/93
[2024-12-18] MEDS ORDERED: buPROPion HCL 150 MG TAB.SR.12H PO SCH (09:00)
[2024-12-18] MEDS ORDERED: Lisinopril 10 MG Tab PO SCH (09:00)
[2024-12-18] MEDS ORDERED: Enoxaparin 40 MG/0.4 ML SYR SC SCH (09:00)
[2024-12-18] MEDS ORDERED: COMBIVENT RESPIM4 G1 INH (12:10)
[2024-12-18] MEDS ORDERED: GUAI600T33 PO (13:30)
[2024-12-18] MEDS ORDERED: AZIT250 PO (13:40)
[2024-12-18] MEDS ORDERED: Prednisone10 MG (13:41)
--- NOTE | 2024-12-18 14:36 | NUR ---
DISCHARGE SUMMARY: A&Ox4. PLEASANT AND COOPERATIVE WITH CARE. CALLS APPROPRIATELY AND IS ABLE TO ADVOCATE NEEDS EFFECTIVELY. CONTINENT OF BOWEL AND BLADDER; UTILIZING COMMODE FOR STOOL AND URINAL FOR VOIDING SECONDARY TO OXYGEN DEMANDS AND LINE MANAGEMENT. MEDS WHOLE WTIH FLUIDS. NO C/O PAIN OR DISCOMFORT ASIDE FOR SOB. ADUIBLE GRUNT WITH PROLONGED EXPIRATION AND BARREL CHEST NOTED. MEDICATIONS FAXED TO [facility]. INSTRUCTED TO FOLLOW-UP WITH PCP AND PULMONOLOGY. LEFT FLOOR AT 1400 WITH ALL BELONGINGS AND DISCHARGE PACKET, ESCORTED BY [facility]. TRANSPORTATION PROVIDED BY .
[2024-12-18] MEDS ORDERED: Azithromycin 500 MG in NS 250 ML IV SCH (18:00)
== END 2024-12-18 14:28 | disposition home or self-care (01) ==
LOC: ER 13:09 → MEDS 13:10 → ERHOLD 13:10 → MEDS 21:22
PROVIDERS: Emergency Medicine; Nurse Practitioner Acute Care; Physician Assistant; Student in an Organized Health Care Education/Training Program; ADMIT Student in an Organized Health Care Education/Training Program
DX: J44.1 Chronic obstructive pulmonary disease with (acute) exacerbation (principal); J96.01 Acute respiratory failure with hypoxia; E87.1 Hypo-osmolality and hyponatremia; J43.9 Emphysema, unspecified; I10 Essential (primary) hypertension; Z79.899 Other long term (current) drug therapy; Z88.8 Allergy status to other drugs, medicaments and biological substances; Z87.891 Personal history of nicotine dependence
CPT/HCPCS: 36415; 71046; 80048; 80053; 82803; 84484; 85025; 87428-QW; 93005; 93010; 94640; 94664; 94761; 94762; 96361; 96372; 96374; 96376; 99285-25; A9270; G0378; J1650; J1885; J2919; J7030

== ENCOUNTER 2025-02-12 15:34 | Inpatient (IN) | payer BC ==
[~2025-02-12] VITALS: Ht 167.6 cm; Wt 51.7 kg
[~2025-02-12 15:34] MED LIST changes: +IPRAT-ALBUT 0.5-3 ML INH; +Prednisone10 MG
[2025-02-12 16:42] LABS: BASOPHILS ABSOLUTE AUTO 0.13 K/mm3 (0.00-0.23); BASOPHILS PERCENT AUTO 1 % (0-2); EOSINOPHILS ABSOLUTE AUTO 0.02 K/mm3 (0.00-0.68); EOSINOPHILS PERCENT AUTO 0 % (0-6); Hemoglobin 14.3 g/dL (13.5-17.5); IMMATURE GRAN ABSOLUTE AUTO 1.16 K/mm3 (0.00-0.10); IMMATURE GRAN PERCENT AUTO 5 % (0-1); LYMPHOCYTES ABSOLUTE AUTO 0.57 K/mm3 (0.84-5.20); LYMPHOCYTES PERCENT AUTO 2 % (21-46); MONOCYTES ABSOLUTE AUTO 0.95 K/mm3 (0.16-1.47); MONOCYTES PERCENT AUTO 4 % (4-13); Mean Corpuscular HGB 31.8 pg (26.0-34.0); Mean Corpuscular HGB Conc 34.9 g/dL (31.5-36.5); Mean Corpuscular Volume 91 fL (80-100); Mean Platelet Volume 8.8 fL (9.1-12.4); NEUTROPHILS ABSOLUTE AUTO 21.07 K/mm3 (1.96-9.15); NEUTROPHILS PERCENT AUTO 88 % (41-73); Platelet Count 212 K/mm3 (150-400); RDW Coefficient Variation 12.7 % (11.7-14.2); RDW Standard Deviation 42.8 fL (35.1-46.3)
[2025-02-12 17:06] LABS: Albumin/Globulin Ratio 0.8 (0.8-1.8); Bilirubin, Total 0.8 mg/dL (0.1-1.0); Bun/Creatinine Ratio 16.6 (12.0-20.0); Calcium, Blood 8.9 mg/dL (8.5-10.1); Creatinine, Blood 2.05 mg/dL (0.60-1.20); Potassium, Blood 3.5 mmol/L (3.5-5.5)
[2025-02-12] MEDS ORDERED: CLIN150 PO (19:11)
[2025-02-12] MEDS ORDERED: Vancomycin HCL 2,000 MG in NS 520 ML IV ONE (21:25)
[2025-02-12] MEDS ORDERED: NS 1,000 ML IV SCH (21:25)
[2025-02-12] MEDS ORDERED: Albuterol 2.5 MG/3 ML VIAL INH PRN (21:55)
[2025-02-12] MEDS ORDERED: Lactated Ringer's 1,000 ML IV SCH (22:00)
[2025-02-12] MEDS ORDERED: Ipratropium/Albuterol SulF 2.5-0.5MG/3 ML Amp INH SCH (22:00)
[2025-02-12] MEDS ORDERED: NS 1,000 ML IV ONE (22:00)
[2025-02-12] MEDS ORDERED: FLU VACC TS2024-25(6MOS UP)/PF 45 MCG/0.5 ML SYRINGE IM ONE (22:00)
[2025-02-12] MEDS ORDERED: Ondansetron HCl 2 MG / ML 2ML Vial IV PRN (22:00)
[2025-02-12] MEDS ORDERED: CeFAZolin Sodium 2,000 MG in NS 100 ML IV SCH (23:03)
[2025-02-12 23:11] LABS: U Amphetamine Screen Not Detected; U Barbituate Screen Not Detected; U Benzodiazapine Screen Not Detected; U Buprenorphine Screen Not Detected; U Cannabinoids Screen Not Detected; U Cocaine Screen Not Detected; U Methadone Screen Not Detected; U Methamphetamine Screen Not Detected; U Opiates Screen Not Detected; U Oxycodone Screen Not Detected; U Phencyclidine Screen Not Detected
[2025-02-12] MEDS ORDERED: Mometasone/Formoterol MDI 100/5 mcg 13 GM INH SCH (23:15)
[2025-02-13 03:52] LABS: Hematocrit 33.3 % (37.0-53.0); Hemoglobin 11.5 g/dL (13.5-17.5); Mean Corpuscular HGB 31.3 pg (26.0-34.0); Mean Corpuscular HGB Conc 34.5 g/dL (31.5-36.5); Mean Corpuscular Volume 91 fL (80-100); Mean Platelet Volume 8.7 fL (9.1-12.4); Platelet Count 177 K/mm3 (150-400); RDW Coefficient Variation 12.7 % (11.7-14.2); RDW Standard Deviation 42.3 fL (35.1-46.3); Red Blood Cell Count 3.67 M/mm3 (4.30-5.90); White Blood Cell Count 18.92 K/mm3 (4.00-11.30)
[2025-02-13 04:01] VITALS: BP 126/73
--- NOTE | 2025-02-13 04:12 | NUR ---
ADMIN NOTE: PATIENT ARRIVED VIA HOSPITAL BED FROM THE ER. REPORT RECIEVED FROM RN, WHO STATED THAT THE PATIENT DROVE THEMSELVES TO THE HOSPITAL FOR LEFT UPPER EXTREMITRY PAIN AND SWELLING SECONDARY TO AN INSECT BITE THAT OCCURED ON 02/10/2025. THE PATIENT SAW THEIR PRIMARY DOCTOR ON Tuesday02/11/2025 FOR THE INSECT BITE AND WAS PRESCRIBED AN ANTIBIOTIC BUT STOPPED TAKING IT AFTER 1 ONE DAY. WHILE IN THE ER THEY WERE BEING TREATED FOR CELLULITIS OF THE LEFT UPPER EXTREMITY AND SEPSIS. PATIENT IS A&O X4 GCS15 AND COMPLAING IF 5/10 PAIN IN THE LEFT UPPER EXTREMITY, SPO2 @ 97% ON O2 @ 2LPM VIA NC, LUNG SOUNDS CLEAR BUT THEY DO HAVE AN AUDIBLE GRUNTING/GROWLING SOUND DURING EXPIRATION. HR IS IN THE 90'S TO LOW 100'S AND THEIR SBP IN THE 120'S. PT IS ABLE TO STAND AND WALK WITHOUT ASSISTANCE BUT DOES GET SOB UPON EXERTION. LEFT UPPER EXTREMITY IS RED AND SWOLLEN AND SWELLING HS BEEN OUT LINED WITH PEN ON THE UPPER LEFT ARM. PATIENT'S RIGHT HAND IS PURPLE AND PATIENT STATES IT IS NORMAL WHEN THEIR HANDS GETS COLD, THEY ALSO MENTIONED THAT THEIR SKIN IS FRAGILE AND THEY BRUISE EASILY. CMS IS POSTIVE IN ALL 4 EXTREMITIES. PATIENT NEEDED ASSISTANCE WHEN CHANGING OUT OF THEIR CLOTHES AND INTO A HOSPITAL GOWN. THEY HAVE IV ACCESS IN THEIR R ARM. PATIENT WAS ABLE TO REPOSTION THEMSELVES INTO A COMFORTABLE POSITION, THEIR LINES AND CORDS OUT OF THEIR WAY. THEIR CALL LIGHT WAS PLACED WITHIN REACH AND THEY WERE TOLD TO PRESS THE CALL BUTTON IF THEY NEED ASSISTANCE.
[2025-02-13 04:16] LABS: BAND PERCENT MAN 3 % (0-8); BASOPHILS PERCENT MAN 0 % (0-2); EOSINOPHILS PERCENT MAN 0 % (0-6); LYMPHOCYTES ABSOLUTE MAN 0.56 K/mm3 (0.84-5.20); LYMPHOCYTES PERCENT MAN 3 % (21-46); MONOCYTES ABSOLUTE MAN 0.37 K/mm3 (0.16-1.47); MONOCYTES PERCENT MAN 2 % (4-13); NEUTROPHILS ABSOLUTE MAN 17.97 K/mm3 (1.96-9.15); SEG NEUTROPHILS PERCENT MAN 92 % (41-73); TOTAL CELLS COUNTED 100
[2025-02-13 04:44] LABS: Albumin, Blood 2.4 g/dL (3.4-5.0); Albumin/Globulin Ratio 0.8 (0.8-1.8); Bilirubin, Total 0.4 mg/dL (0.1-1.0); Bun/Creatinine Ratio 22.2 (12.0-20.0); Calcium, Blood 7.8 mg/dL (8.5-10.1); Creatinine, Blood 1.26 mg/dL (0.60-1.20); Globulin, Blood 3.2 g/dL (2.2-4.0); Total Protein, Blood 5.6 g/dL (6.4-8.2)
[2025-02-13] MEDS ORDERED: Potassium Chloride 40 MEQ in NS 250 ML IV ONE (06:10)
--- NOTE | 2025-02-13 06:16 | NUR ---
SHIFT SUMMARY: PATIENT REMAINED STABLE AND WAS ABLE TO SLEEP THROUGHOUT THE NIGHT. NO CHANGES SINCE ADMIN TO THE ICU. CALL LIGHT PLACED WITHIN REACH AND THEY WERE TOLD TO PRESS THE CALL BUTTON IF THEY NEED ASSISTANCE.
--- NOTE | 2025-02-13 07:00 | NUR ---
ASSUMPTION OF CARE PT IS RECEIVING LR 100ML/HR. HE IS ALERT AND ORIENTED, PARTICIPATES IN CONVERSATION. REPORTS HE HAS BEEN KEEPING HIS LUE ELEVATED AND SWELLING HAS IMPROVED. AREA REMAINS OUTLINED FROM HIS PCP APPOINTMENT, SMALL AMOUNT OF REDNESS ABOVE THE LINE. PT REPORTS POSTERIOR FOREARM IS SENSITIVE TO TOUCH. HE IS ON 1L NC. SINUS TACH ON MONITOR WITH RATE IN 100S. BP STABLE. PT VOIDED IN URINAL WITHOUT DIFFICULTY. BED IN LOW POSITION, CALL LIGHT WITHIN REACH.
[2025-02-13 08:00] VITALS: BP 128/78
[2025-02-13] MEDS ORDERED: CeFAZolin Sodium 2,000 MG in NS 100 ML IV SCH (08:00)
[2025-02-13] MEDS ORDERED: Potassium Chloride 10 Meq Tablet SA PO ONE (08:05)
[2025-02-13] MEDS ORDERED: GuaiFENesin 600 MG TabCR PO SCH (09:00)
[2025-02-13] MEDS ORDERED: Enoxaparin 30 MG/0.3 ML SYR SC SCH (09:00)
[2025-02-13] MEDS ORDERED: Enoxaparin 40 MG/0.4 ML SYR SC SCH (09:00)
[2025-02-13] MEDS ORDERED: Lactobacil 2-S.Thermo-Bifido 1 1 Cap PO SCH (09:00)
--- NOTE | 2025-02-13 11:02 | NUR ---
UPDATE PT INDEPENDENT IN THE ROOM AND USES CALL LIGHT APPROPRIATELY. SPOUSE AT BEDSIDE. PT TRANSITIONED TO MEDICAL STATUS.
[2025-02-13 15:06] LABS: Bun/Creatinine Ratio 18.7 (12.0-20.0); Calcium, Blood 8.1 mg/dL (8.5-10.1); Creatinine, Blood 0.8 mg/dL (0.60-1.20); Magnesium, Blood 1.6 mg/dL (1.6-2.4); Potassium, Blood 3.5 mmol/L (3.5-5.5)
--- NOTE | 2025-02-13 15:19 | NUR ---
UPDATE PT REMAINS ALERT AND ORIENTED. PERFORMS ADLS INDEPENDENTLY. PT C/O L ARM TINGLING AND REQUESTED ICE PACK. REPORTS RELIEF WITH ICE PACK. PT'S CURRENTLY AT BEDSIDE.
[2025-02-13 15:45] VITALS: BP 111/66
--- NOTE | 2025-02-13 16:48 | NUR ---
TRANSFER TO MEDICAL FLOOR ALL BELONGINGS TAKEN WITH PT TO [facility]. PT TRANSPORTED VIA WHEELCHAIR BY ENE[facility]DS[facility]. ON 2L NC. PT'S MARIZA UPDATED VIA TELEPHONE.
--- NOTE | 2025-02-13 17:02 | NUR ---
1700- PT ARRIVED ON MEDICAL UNIT IN STABLE CONDITION ON 2.5L AFTER RECEIVING REPORT FROM DIRECTOR CLINICAL APPLICATIONS.
--- NOTE | 2025-02-13 17:39 | NUR ---
1739- THIS RN NOTIFIED MD RICKETTS OF PT'S 2 MINUTE RUN OF BIGEMINY PER INFERTILITY NURSE MAGGY. PT DENIES ANY C/P. PT ASYMPTOMATIC. NO NEW ORDERS. AWARE.
--- NOTE | 2025-02-13 18:42 | NUR ---
SUMMARY- AAOX4. IND IN ROOM. NO ACUTE EVENTS SINCE ARRIVING ON MEDICAL FLOOR. PT ON 2-4 L O2. NO COMPLAINTS OF PAIN.
[2025-02-13 20:03] VITALS: BP 117/65
[2025-02-13] MEDS ORDERED: Acetaminophen 500 MG Tab PO PRN (22:10)
[2025-02-13 23:44] VITALS: BP 124/80
[2025-02-14 03:51] VITALS: BP 142/83
--- NOTE | 2025-02-14 05:35 | NUR ---
AAOX4. INDEPENDENT IN ROOM, USES CALL LIGHT APPROPRIATELY. TELE, SR @115. 2L O2 VIA NC, BASELINE 2-4L O2 DEPENDING ON ACTIVITY. LUE SWELLING DECREASED, REDNESS OUT OF MARKED BOARDER. TYLENOL FOR PAIN. RECIEVING CEFALOZIN, RUE POWERGLIDE. OMAHA. RESTED WELL.
[2025-02-14 07:04] LABS: Bun/Creatinine Ratio 15.7 (12.0-20.0); Creatinine, Blood 0.51 mg/dL (0.60-1.20); Potassium, Blood 3.3 mmol/L (3.5-5.5)
[2025-02-14 07:23] VITALS: BP 161/102
[2025-02-14 08:19] LABS: BASOPHILS ABSOLUTE AUTO 0.06 K/mm3 (0.00-0.23); BASOPHILS PERCENT AUTO 1 % (0-2); EOSINOPHILS ABSOLUTE AUTO 0.14 K/mm3 (0.00-0.68); EOSINOPHILS PERCENT AUTO 1 % (0-6); Hematocrit 29.5 % (37.0-53.0); Hemoglobin 10.2 g/dL (13.5-17.5); IMMATURE GRAN ABSOLUTE AUTO 0.05 K/mm3 (0.00-0.10); IMMATURE GRAN PERCENT AUTO 1 % (0-1); LYMPHOCYTES ABSOLUTE AUTO 1.02 K/mm3 (0.84-5.20); LYMPHOCYTES PERCENT AUTO 10 % (21-46); MONOCYTES ABSOLUTE AUTO 0.81 K/mm3 (0.16-1.47); MONOCYTES PERCENT AUTO 8 % (4-13); Mean Corpuscular HGB 31.8 pg (26.0-34.0); Mean Corpuscular HGB Conc 34.6 g/dL (31.5-36.5); Mean Corpuscular Volume 92 fL (80-100); Mean Platelet Volume 9.5 fL (9.1-12.4); NEUTROPHILS ABSOLUTE AUTO 7.74 K/mm3 (1.96-9.15); NEUTROPHILS PERCENT AUTO 79 % (41-73); Platelet Count 185 K/mm3 (150-400); RDW Standard Deviation 43.8 fL (35.1-46.3); Red Blood Cell Count 3.21 M/mm3 (4.30-5.90); White Blood Cell Count 9.82 K/mm3 (4.00-11.30)
[2025-02-14] MEDS ORDERED: CeFAZolin Sodium 2,000 MG VIAL ONE (08:27)
[2025-02-14] MEDS ORDERED: Potassium Chloride 20 MEQ TabCR PO ONE (08:55)
[2025-02-14 16:19] VITALS: BP 154/90
--- NOTE | 2025-02-14 16:23 | NUR ---
PATIENT A/OX4, UP INDEPENDENTLY IN ROOM. 3LO2 NOW AND AT BASELINE TO MAINTAIN SATS. REDNESS AND SWELLING TO L ARM EXCEEDS ORIGINAL OUTLINE. PATIENT ELEVATING ON PILLOW AND APPLYING ICE PRN. LR INFUSING AT 100ML/HR. SR WITH PVC'S ON TELE, DENIES ANY CP OR PRESSURE. PLEASANT AND COOPERATIVE, ABLE TO MAKE NEEDS KNOWN.
[2025-02-14 21:26] VITALS: BP 155/87
[2025-02-15 00:10] VITALS: BP 161/92
--- NOTE | 2025-02-15 01:19 | NUR ---
A&OX4, VSS, IND/CONT TO BATHROOM, STATES PAIN IS WELL CONTROLLED WITH ICE PACK ONLY, SLEEPING AT THIS TIME, CONT FLUIDS INFUSING, CALL LIGHT IN REACH, REPORT GIVEN TO MERRY RODRIGUEZ TO ASSUME CARE @ 0120.
[2025-02-15 04:07] VITALS: BP 157/76
--- NOTE | 2025-02-15 05:24 | NUR ---
Rn shift summary: Patient has been resting well. Did request a respiratory treatment at 0300 for lung tightness. Pt better afterwards. O2 at 2.5 liters. Given tylenol for his left arm pain with minimal relief. He states his arm is less red, it remains swollen and is itchy. Skin is starting to look dry. L arm elevated on a pillow for comfort. Call light in reach. Very pleasant man.
[2025-02-15 05:47] LABS: BASOPHILS ABSOLUTE AUTO 0.06 K/mm3 (0.00-0.23); BASOPHILS PERCENT AUTO 1 % (0-2); EOSINOPHILS ABSOLUTE AUTO 0.23 K/mm3 (0.00-0.68); EOSINOPHILS PERCENT AUTO 3 % (0-6); Hemoglobin 9.9 g/dL (13.5-17.5); IMMATURE GRAN ABSOLUTE AUTO 0.04 K/mm3 (0.00-0.10); IMMATURE GRAN PERCENT AUTO 1 % (0-1); LYMPHOCYTES ABSOLUTE AUTO 0.95 K/mm3 (0.84-5.20); LYMPHOCYTES PERCENT AUTO 14 % (21-46); MONOCYTES ABSOLUTE AUTO 0.95 K/mm3 (0.16-1.47); MONOCYTES PERCENT AUTO 14 % (4-13); Mean Corpuscular HGB 31.6 pg (26.0-34.0); Mean Corpuscular HGB Conc 34.1 g/dL (31.5-36.5); Mean Corpuscular Volume 93 fL (80-100); Mean Platelet Volume 9.1 fL (9.1-12.4); NEUTROPHILS ABSOLUTE AUTO 4.57 K/mm3 (1.96-9.15); NEUTROPHILS PERCENT AUTO 67 % (41-73); Platelet Count 172 K/mm3 (150-400); RDW Coefficient Variation 13.1 % (11.7-14.2); RDW Standard Deviation 43.9 fL (35.1-46.3); Red Blood Cell Count 3.13 M/mm3 (4.30-5.90)
[2025-02-15 06:16] LABS: Bun/Creatinine Ratio 7.5 (12.0-20.0); Calcium, Blood 7.9 mg/dL (8.5-10.1); Creatinine, Blood 0.4 mg/dL (0.60-1.20); Potassium, Blood 3.2 mmol/L (3.5-5.5)
[2025-02-15 08:17] VITALS: BP 152/102
[2025-02-15] MEDS ORDERED: Potassium Chloride 10 Meq Tablet SA PO ONE (09:10)
[2025-02-15] MEDS ORDERED: Mag Sulfate 1 GM/D5% 100ML 100 ML IV STA (13:41)
[2025-02-15] MEDS ORDERED: PredniSONE 20 MG Tab PO SCH (14:00)
[2025-02-15] MEDS ORDERED: NS 250 ML IV PRN (15:35)
[2025-02-15 16:14] VITALS: BP 141/94
[2025-02-15 16:15] VITALS: BP 141/94
--- NOTE | 2025-02-15 17:07 | NUR ---
SHIFT SUMMARY: PT A&O X4. PLEASANT AND COOPERATIVE. INDEPENDENT IN ROOM. L. ARM CELLULITIS WARM TO TOUCH, RED, AND EDEMADOUS. PT ON 2L. ON TELE RUNNING SINUS RHYHTM PVC IN THE S. PT STATES SHE IS WORRIED ABOUT EARLY COPD EXAC. SPOKE WITH DR. RICKETTS WHO PLACED PT ON ORAL STEROIDS. MAG LAB OBTAINED AND REPLACED. POTASSIUM REPLACED WITH PO TABS. CALL LIGHT IN REACH. BED IN LOWEST POSITION.
[2025-02-15 19:31] VITALS: BP 173/106
[2025-02-16 01:11] VITALS: BP 144/95
[2025-02-16 04:27] VITALS: BP 152/95
--- NOTE | 2025-02-16 04:50 | NUR ---
PT A&O X4. VS WNL WITH EXCEPTION OF INCREASED HR D/T NEB TX'S. PT WITH POWERGLIDE IN MARICRUZ, DRAWS AND FLUSHES WELL. PT WITH TELE ST WITH BBB, AND OCCASIONAL PVC'S. REMAINS ON CONTINUOUS OXCIMETRY, ROUTINE NEBS, AND X2 PRN'S THIS SHIFT. L/S WITH VERY LITTLE AIR MOVEMENT. LT ARM WITH CELLULITIS OVER MOST ARM, AND SOME HARDNESS AND INCREASED SWELLING IN ELBOW. PT STATES PAIN IS MINIMAL, NO MEDS ADMINISTERED THIS SHIFT. PO INTAKE WNL, REMAINS ON IVABX. UNSURE WHAT PLAN IS AT THIS TIME.
[2025-02-16 06:43] LABS: BASOPHILS ABSOLUTE AUTO 0.03 K/mm3 (0.00-0.23); BASOPHILS PERCENT AUTO 1 % (0-2); EOSINOPHILS PERCENT AUTO 0 % (0-6); Hematocrit 29.2 % (37.0-53.0); Hemoglobin 9.8 g/dL (13.5-17.5); IMMATURE GRAN ABSOLUTE AUTO 0.04 K/mm3 (0.00-0.10); IMMATURE GRAN PERCENT AUTO 1 % (0-1); LYMPHOCYTES ABSOLUTE AUTO 1.04 K/mm3 (0.84-5.20); LYMPHOCYTES PERCENT AUTO 20 % (21-46); MONOCYTES ABSOLUTE AUTO 0.86 K/mm3 (0.16-1.47); MONOCYTES PERCENT AUTO 16 % (4-13); Mean Corpuscular HGB 31.4 pg (26.0-34.0); Mean Corpuscular HGB Conc 33.6 g/dL (31.5-36.5); Mean Corpuscular Volume 94 fL (80-100); Mean Platelet Volume 9.6 fL (9.1-12.4); NEUTROPHILS ABSOLUTE AUTO 3.26 K/mm3 (1.96-9.15); NEUTROPHILS PERCENT AUTO 62 % (41-73); Platelet Count 203 K/mm3 (150-400); RDW Coefficient Variation 12.7 % (11.7-14.2); RDW Standard Deviation 43.6 fL (35.1-46.3); Red Blood Cell Count 3.12 M/mm3 (4.30-5.90); White Blood Cell Count 5.23 K/mm3 (4.00-11.30)
[2025-02-16 07:00] LABS: Albumin, Blood 2.2 g/dL (3.4-5.0); Anion Gap 9 mmol/L (3-11); Blood Urea Nitrogen 2 mg/dL (8-24); Bun/Creatinine Ratio 5.6 (12.0-20.0); CO2, Blood 32 mmol/L (21-32); Calcium, Blood 7.5 mg/dL (8.5-10.1); Chloride, Blood 95 mmol/L (98-108); Creatinine, Blood 0.35 mg/dL (0.60-1.20); Glomerular Filtration Rate 130 (60-); Glucose, Blood 119 mg/dL (70-99); Phosphorus, Blood 2.5 mg/dL (2.5-4.9); Potassium, Blood 3.2 mmol/L (3.5-5.5); Sodium, Blood 133 mmol/L (136-145)
[2025-02-16 07:25] VITALS: BP 153/89
[2025-02-16] MEDS ORDERED: Potassium Chloride 20 MEQ TabCR PO ONE (08:00)
[2025-02-16 16:04] VITALS: BP 143/88
[2025-02-16 16:17] LABS: Magnesium, Blood 1.4 mg/dL (1.6-2.4)
--- NOTE | 2025-02-16 17:42 | NUR ---
PT HAS HAD NO C/O PAIN DURING THE SHIFT, SOB OR CHEST PAIN.
[2025-02-16 19:45] VITALS: BP 144/100
[2025-02-16 21:29] LABS: Potassium, Blood 3.6 mmol/L (3.5-5.5)
[2025-02-17 01:12] VITALS: BP 141/84
--- NOTE | 2025-02-17 05:02 | NUR ---
PT A&O X4, VS WNL, PT WITH INCREASED DYSPNEA AND PANIC ATTACKS IF HE CAN'T CATCH HIS BREATH, SATS WITH BE >90%, BUT WILL REQUEST O2 INCREASE. DID INCREASE TO 3L/NC. DID NOT REQUEST PRN NEB THIS SHIFT. PT INDEPENDENT WITH MOBILITY. LT ARM STILL RED, SWOLLEN, AND WARM TO TOUCH. THE SWELLING IS DECREASED SINCE LAST NIGHT. TELE HAS BEEN ST IN THE 110-130 AREA POTENTIALY D/T NEB TX'S AND STEROIDS. PLAN TO D/C HOME IN NEXT 24-48 HRS. POWER GLIDE STILL WNL, PT REMAINS ON IVABX.
[2025-02-17 05:04] VITALS: BP 152/99
[2025-02-17 08:04] VITALS: BP 160/99
[2025-02-17] MEDS ORDERED: Furosemide 10 MG / ML 2ML Vial IV ONE (10:15)
[2025-02-17] MEDS ORDERED: Lisinopril 10 MG Tab PO SCH (10:30)
[2025-02-17 10:51] LABS: Albumin, Blood 2.6 g/dL (3.4-5.0); Albumin/Globulin Ratio 0.7 (0.8-1.8); Bilirubin, Total 0.3 mg/dL (0.1-1.0); Bun/Creatinine Ratio 4.8 (12.0-20.0); Calcium, Blood 7.9 mg/dL (8.5-10.1); Creatinine, Blood 0.42 mg/dL (0.60-1.20); Globulin, Blood 3.6 g/dL (2.2-4.0); Magnesium, Blood 1.5 mg/dL (1.6-2.4); Potassium, Blood 3.2 mmol/L (3.5-5.5); Total Protein, Blood 6.2 g/dL (6.4-8.2)
[2025-02-17] MEDS ORDERED: Mag Sulfate 1 GM/D5% 100ML 100 ML IV STA (15:19)
[2025-02-17 15:28] VITALS: BP 155/98
[2025-02-17] MEDS ORDERED: Potassium Chloride 20 MEQ TabCR PO ONE (16:00)
--- NOTE | 2025-02-17 17:39 | NUR ---
PT NEEDED MAG AND K TO GET NUMBERS UP. PT HAD NO C/O PAIN OR CHEST TIGHTNESS.
[2025-02-17 19:47] VITALS: BP 142/78
[2025-02-17 23:56] VITALS: BP 138/93
[2025-02-18 05:23] LABS: BASOPHILS ABSOLUTE AUTO 0.02 K/mm3 (0.00-0.23); BASOPHILS PERCENT AUTO 0 % (0-2); EOSINOPHILS ABSOLUTE AUTO 0.07 K/mm3 (0.00-0.68); EOSINOPHILS PERCENT AUTO 1 % (0-6); Hematocrit 28.9 % (37.0-53.0); Hemoglobin 9.8 g/dL (13.5-17.5); IMMATURE GRAN ABSOLUTE AUTO 0.03 K/mm3 (0.00-0.10); IMMATURE GRAN PERCENT AUTO 1 % (0-1); LYMPHOCYTES ABSOLUTE AUTO 2.08 K/mm3 (0.84-5.20); LYMPHOCYTES PERCENT AUTO 36 % (21-46); MONOCYTES PERCENT AUTO 16 % (4-13); Mean Corpuscular HGB 31.2 pg (26.0-34.0); Mean Corpuscular HGB Conc 33.9 g/dL (31.5-36.5); Mean Corpuscular Volume 92 fL (80-100); Mean Platelet Volume 8.8 fL (9.1-12.4); NEUTROPHILS ABSOLUTE AUTO 2.62 K/mm3 (1.96-9.15); NEUTROPHILS PERCENT AUTO 46 % (41-73); Platelet Count 304 K/mm3 (150-400); RDW Coefficient Variation 12.7 % (11.7-14.2); RDW Standard Deviation 42.8 fL (35.1-46.3); Red Blood Cell Count 3.14 M/mm3 (4.30-5.90); White Blood Cell Count 5.72 K/mm3 (4.00-11.30)
[2025-02-18 05:28] VITALS: BP 138/91
--- NOTE | 2025-02-18 05:39 | NUR ---
PT A&O X4, VS WNL, O2 AT 2L AND AT TIMES WILL ASK TO INCREASE TO 3L WITH ACTIVITY. PO INTAKE WNL, AND OUTPUT WNL. MARICRUZ POWER GLIDE FLUSHED AND CHRISTOFER BACK WITHOUT ISSUE. TELE NSR WITH BBB. RECIEVED NEBS ROUTINLY THROUGHOUT NIGHT. DENIED PAIN AND LEFT ARM STILL REMAINS RED, SWOLLEN, AND WARM TO TOUCH, BUT NOT BAD DIRECTOR HARDWARE ON 02/16. PT DOES KEEP IT ELEVATED. PLAN IS TO D/C HOME TODAY. PT REFUSES SCD'S D/T DISCOMFORT.
[2025-02-18 05:53] LABS: Albumin, Blood 2.2 g/dL (3.4-5.0); Albumin/Globulin Ratio 0.7 (0.8-1.8); Bilirubin, Total 0.2 mg/dL (0.1-1.0); Bun/Creatinine Ratio 6.9 (12.0-20.0); Calcium, Blood 7.5 mg/dL (8.5-10.1); Creatinine, Blood 0.43 mg/dL (0.60-1.20); Globulin, Blood 3.1 g/dL (2.2-4.0); Potassium, Blood 3.3 mmol/L (3.5-5.5); Total Protein, Blood 5.3 g/dL (6.4-8.2)
[2025-02-18 07:25] VITALS: BP 146/91
[2025-02-18] MEDS ORDERED: CEPH500 PO (14:24)
[2025-02-18] MEDS ORDERED: Prednisone10 MG PO (14:25)
[2025-02-18] MEDS ORDERED: VISBIOME 112.51 EACH PO (14:27)
[2025-02-18 15:30] VITALS: BP 161/90
--- NOTE | 2025-02-18 16:32 | NUR ---
PT WAS DISCHARGED UNDER MD ORDERS. PIV REMOVED, TELE STICKERS REMOVED AND PT HAD D/C PACKET IN HAND. PT AND HAD NO QUESTIONS OR CONCERNS.
== END 2025-02-18 16:30 | disposition home or self-care (01) | DRG 872 ==
LOC: ER 15:34 → PCU 21:54 → MEDS 21:54 → ICUE 21:54 → MEDS 02-13 16:48
PROVIDERS: Family Medicine; Nurse Practitioner Acute Care; Physician Assistant; ADMIT Internal Medicine
DX: A41.9 Sepsis, unspecified organism (principal); E87.21 Acute metabolic acidosis; N17.9 Acute kidney failure, unspecified; L03.114 Cellulitis of left upper limb; J96.11 Chronic respiratory failure with hypoxia; E87.1 Hypo-osmolality and hyponatremia; J44.1 Chronic obstructive pulmonary disease with (acute) exacerbation; R65.20 Severe sepsis without septic shock; I10 Essential (primary) hypertension; J43.9 Emphysema, unspecified; E86.1 Hypovolemia; R91.1 Solitary pulmonary nodule; I95.9 Hypotension, unspecified; E83.42 Hypomagnesemia; E87.6 Hypokalemia; Z88.8 Allergy status to other drugs, medicaments and biological substances; Z99.81 Dependence on supplemental oxygen; Z79.51 Long term (current) use of inhaled steroids; Z79.52 Long term (current) use of systemic steroids; Z87.891 Personal history of nicotine dependence
CPT/HCPCS: 36415; 71250; 73201; 80048; 80053; 80069; 83605; 83735; 84132; 85025; 87040; 93005; 93010; 94640; 94664; 94760; 94762; 96374-59; 99285-25; A9270; C1751; J0690; J1650; J1940; J3370; J3475; J3480; J7030; J7040; J7050; J7120; J7512; Q9967